=== PATIENT | female | born 1975 | race Two or more races ===

== ENCOUNTER 2020-07-10 11:38 | Emergency (ER) | payer BC ==
[~2020-07-10] VITALS: Ht 162.6 cm; Wt 90.7 kg
== END 2020-07-10 17:21 | disposition home or self-care (01) ==
LOC: ER 11:38
DX: B34.9 Viral infection, unspecified (principal); J40 Bronchitis, not specified as acute or chronic; R53.81 Other malaise; T50.B95A Adverse effect of other viral vaccines, initial encounter; Y92.89 Other specified places as the place of occurrence of the external cause; Z20.822 Contact with and (suspected) exposure to COVID-19

== ENCOUNTER 2025-03-03 19:39 | Emergency (ER) | payer OTHER ==
[~2025-03-03] VITALS: Ht 162.6 cm; Wt 86.2 kg
[2025-03-03] MEDS ORDERED: CETIRIZINE HCL 5MG/5ML BLIST.PACK PO ONE (22:25)
[2025-03-03] MEDS ORDERED: BENZONATATE 100 MG CAPSULE PO ONE (22:30)
[2025-03-03] MEDS ORDERED: CETIRIZINE HCL 5 MG/5 ML ML PO ONE (22:30)
[2025-03-03 23:26] LABS: BASO % 0.4 % (0.1-1.2); EOS # 0.38 (0.04-0.54); EOS % 3.0 % (0.7-7.0); LYMPH # 3.51 (1.18-3.74); LYMPH % 27.8 % (19.3-53.1); MEAN PLATELET VOLUME 13.50 fl (9.4-12.4); MONO # 0.72 (0.24-0.82); MONO % 5.7 % (4.7-12.5); NEUT # 7.91 (1.56-6.13); NEUT % 62.7 % (34.0-71.1); RED CELL DISTRIBUTION WIDTH 13.2 % (11.6-14.4)
[2025-03-03 23:43] LABS: COVID-19 AG NEGATIVE (NEGATIVE)
[2025-03-04] MEDS ORDERED: GILTUSS COUGH-118 M1 PO (00:49)
[2025-03-04] MEDS ORDERED: AZITHROMYCIN500 MG PO (00:49)
[2025-03-04] MEDS ORDERED: ACETAMINOPHEN500 M1 PO (00:49)
== END 2025-03-04 03:45 | disposition home or self-care (01) ==
LOC: ER 19:39
PROVIDERS: Preventive Medicine Public Health & General Preventive Medicine
DX: J98.8 Other specified respiratory disorders (principal); Z20.822 Contact with and (suspected) exposure to COVID-19